=== PATIENT | male | born 1990 ===

== ENCOUNTER → 2016-10-13 | Outpatient (CLI) | payer OTHER ==
--- NOTE | 2016-10-14 09:34 | RADIOLOGY REPORT (SQ) ---
EXAM DESCRIPTION: MRI RT LOWER EXTREMITY WITHOUT COMPLETED DATE/TIME: 10/13/2016 8:15 pm REASON FOR STUDY: Pain in right lower leg COMPARISON: None. TECHNIQUE: T1, inversion recovery, T2 fat sat weighted sequences right tibia and fibula without intr avenous contrast. Images saved to PACs. LIMITATIONS: None. FINDINGS: There is edema in the soleus muscle throughout its length. There is approximately 2 x 2 c m gap in the musculotendinous junction. The majority of fibers are intact. There is a rim of high T 2 signal in the fascia the soleus from the medial head of the gastrocnemius measuring abou t 10 mm in transverse diameter at the level of the proximal tibia. Much milder edema in the medial h ead of the gastrocnemius and inferior margin of the lateral head. Marrow signal is normal. IMPRESSION: 1. High-grade partial tear of the soleus musculotendinous junction. 2. Fluid in the posteromedial fascial compartment with some associated edema in the distal gastrocnem ius muscles. TECHNICAL DOCUMENTATION: JOB ID: [id number] [employer]- All Rights Reserved
== END ==
LOC: RAD 19:31
PROVIDERS: ATTEND Orthopaedic Surgery
DX: M79.661 Pain in right lower leg (principal)